=== PATIENT | female | born 1965 | race African-American/Black ===

== ENCOUNTER 2016-08-18 10:23 | Day surgery (SDC) | payer OTHER ==
[2016-08-17 12:32] VITALS: BMI 34.9
[~2016-08-18 10:23] MED LIST: BACITRACIN 50,000 UNITS VIAL NR ONE
[2016-08-18] MEDS ORDERED: LIDOCAINE HCL 2% (20ML MULTI-DOSE VIAL) NR ONE (12:45)
[2016-08-18] MEDS ORDERED: KETOROLAC TROMETHAMINE 30 MG/1 ML VIAL ONE (12:55)
[2016-08-18] MEDS ORDERED: DEXAMETHASONE SOD PHOSPHATE 4 MG/1 ML VIAL ONE (12:55)
[2016-08-18] MEDS ORDERED: PROPOFOL 20 ML ONE (12:57)
[2016-08-18] MEDS ORDERED: MIDAZOLAM HCL 2 MG/2 ML SINGLE DOSE VIAL ONE ×3 (12:57→13:38)
[2016-08-18] MEDS ORDERED: ceFAZolin SODIUM 1 GM VIAL IVPB ONE (13:00)
[2016-08-18] MEDS ORDERED: LIDOCAINE HCL 1%, 10 MG/ML (20ML VIAL) IJ ONE (13:04)
[2016-08-18] MEDS ORDERED: LIDOCAINE HCL 2% (50ML VIAL) INF ONE (13:15)
[2016-08-18] MEDS ORDERED: BUPIVACAINE HCL/PF 0.5% (5MG/ML) 10 ML VIAL IJ ONE (13:36)
[2016-08-18] MEDS ORDERED: oxyCODONE HCL 5 MG TABLET PO PRN (13:53)
[2016-08-18] MEDS ORDERED: PROMETHAZINE HCL 25 MG/1 ML VIAL IVPUSH PRN (13:53)
[2016-08-18] MEDS ORDERED: ONDANSETRON 4 MG/2 ML VIAL IVPUSH PRN (13:53)
--- NOTE | 2016-08-18 14:05 | OP ---
Operative Note - Note: Operative Date: 08/18/16 Pre-Operative Diagnosis: R foot DM foot ulcer Operation: R foot debridement and lavage Post-Operative Diagnosis: Same as Pre-op Surgeon: Jonathan Patel Anesthesia: Local, MAC Estimated Blood Loss (mls): 5 Instrument used (Debridements only): #15 blade scalpel Operative Report Dictated: Yes
[2016-08-18 14:28] VITALS: TEMP 98.2
[2016-08-18 17:34] VITALS: BP 119/54; PULSE 76
--- NOTE | 2016-08-22 05:59 | OP ---
DATE OF OPERATION: 08/18/2016 PREOPERATIVE DIAGNOSIS: Right posterior heel diabetic foot ulcer. POSTOPERATIVE DIAGNOSIS: Right posterior heel diabetic foot ulcer. PROCEDURE: Right foot debridement of ulcer and lavage. SURGEON: Jonathan Patel DPM WATCHMAKER APPRENTICE: , PGY3 resident. HEMOSTASIS: None. ANESTHESIA: Local with IV sedation. ESTIMATED BLOOD LOSS: Minimal. PATHOLOGY: None. DESCRIPTION OF PROCEDURE: The patient was brought to the operating room and placed on the operating table in the prone position. I elected to not use hemostasis during the course of the procedure. Following the induction of IV sedation, local anesthesia was achieved utilizing 15 mL of 2% lidocaine plain. Right foot was then scrubbed, prepped, and draped in the usual aseptic fashion. I directed my attention to the right posterior heel where a diabetic foot ulcer overlying the Achilles tendon was visualized and appreciated from prior surgical wound dehiscence. The procedure began by performing a sharp excisional debridement of the ulcer to the level of subcutaneous tissue utilizing sterile 15 blade and sterile scissors. There was underlying granular tissue noted with good, healthy bleeding. Of note, there was a small portion of the Achilles tendon exposed at the medial aspect of the Achilles. This tendon appeared healthy and void of infection or disease. I elected to leave the Achilles tendon intact. Once debridement was performed, the surgical site was copiously irrigated with sterile saline mixed with bacitracin. The surgical site a covered with Adaptic, and a sterile compressive dressing was applied to the right foot consisting of sterile gauze, Truong Kerlix, and an Jed wrap. Of note, I obtained an appropriate soft tissue culture post debridement. The patient tolerated the procedure and anesthesia well without complications. She was transferred from the operating room to the recovery unit with vital signs stable and neuro vasculature intact to the right foot. GLORIA BERGERON/[id number]
== END 2016-08-18 17:20 | disposition home or self-care (01) ==
LOC: JASU-SURG 10:23
PROVIDERS: ATTEND Student in an Organized Health Care Education/Training Program
PROC: 0JBQ0ZZ Excision of Right Foot Subcutaneous Tissue and Fascia, Open Approach (ICD-10-PCS; principal; 2016-08-18 12:00)
DX: E11.621 Type 2 diabetes mellitus with foot ulcer (principal); L97.419 Non-pressure chronic ulcer of right heel and midfoot with unspecified severity
CPT/HCPCS: 87070; 87186; 87205; 94760

== ENCOUNTER 2019-05-21 15:59 | Emergency (ER) | payer BC, OTHER ==
[2019-05-21 16:09] VITALS: BP 148/74; PULSE 90; TEMP 98.2; BMI 34.2
--- NOTE | 2019-05-21 16:36 | PDOC ---
History of Present Illness - General Chief Complaint: Respiratory Stated Complaint: COLD SYMPTOMS Time Seen by Provider: 05/21/19 16:19 - History of Present Illness Initial Comments: 05/21/19 16:28 CHIEF COMPLAINT: cough HISTORY OF PRESENT ILLNESS: 54-year-old female with history of hypertension and insulin-dependent diabetes presents to [facility] with cough x 4 days. Patient reports fever yesterday that broke after taking Tylenol. Patient reports sore throat early on in course of illness but now is mostly suffering from severe spasmatic cough. No recent travel or sick contacts. PAST MEDICAL HISTORY: HTN, IDDM FAMILY HISTORY: Denies SOCIAL HISTORY: Denies tobacco, alcohol, illicit drug use. SURGICAL HISTORY: Denies ALLERGIES: No known drug allergies REVIEW OF SYSTEMS General/Constitutional: Denies fever or chills. Denies weakness, weight change. HEENT: Denies change in vision. Denies ear pain or discharge. Denies sore throat. Cardiovascular: Denies chest pain or shortness of breath. Respiratory: Cough x 4 days with associated chest discomfort. Denies hemoptysis. Gastrointestinal: Denies nausea, vomiting, diarrhea or constipation. Denies rectal bleeding. Genitourinary: Denies dysuria, frequency, or change in urination. Musculoskeletal: Denies joint or muscle swelling or pain. Denies neck or back pain. Skin and breasts: Denies rash or easy bruising. Neurologic: Denies headache, vertigo, loss of consciousness, or loss of sensation. Psychiatric: Denies depression or anxiety. PHYSICAL EXAM General Appearance: Well-appearing, appropriately dressed. No apparent distress. HEENT: EOMI, PERRLA, normal ENT inspection, normal voice, TMs normal, pharynx normal. No conjunctival pallor. No photophobia, scleral icterus. Neck: Supple. Trachea midline. No tenderness, rigidity, carotid bruit, stridor , lymphadenopathy, or thyromegaly. Respiratory/Chest: Persistent dry cough with bronchospasm. No shortness of breath, chest tenderness, respiratory distress, accessory muscle use. No crackles, rales, rhonchi, stridor, wheezing, dullness Cardiovascular: RRR. S1, S2. No JVD, murmur, bradycardia, tachycardia. Vascular Pulses: Dorsalis-Pedis (R): 2+, Dorsalis-Pedis (L): 2+ Gastrointestinal/Abdominal: Normal bowel sounds. Abdomen soft, non-distended. No tenderness or rebound tenderness. No organomegaly, pulsatile mass, guarding , hernia, hepatomegaly, splenomegaly. Lymphatic: No adenopathy, tenderness. Musculoskeletal/Extremities: Normal inspection. FROM of all extremities, normal capillary refill. Pelvis Stable. No CVA tenderness. No tenderness to extremities, pedal edema, swelling, erythema or deformity. Integumentary: Appropriate color, dry, warm. No cyanosis, erythema, jaundice or rash Neurologic: patient relations specialist II-XII intact. Fully oriented, alert. Appropriate mood/affect. Motor strength 5/5. No appreciable EOM palsy, facial droop or sensory deficit. Past History - Past Medical History Allergies/Adverse Reactions: Allergies Allergy/AdvReac Type Severity Reaction Status Date / Time No Known Drug Allergies Allergy Verified 05/21/19 16:09 Home Medications: Ambulatory Orders Oxycodone HCl/Acetaminophen [Percocet 5-325 mg Tablet] 1 tab PO Q4H PRN Metoprolol Succinate [Toprol Xl -] 100 mg PO DAILY 05/04/16 Dulaglutide [Trulicity] 1.5 mg SQ WEEKLY 08/17/16 metFORMIN HCL [Metformin HCl] 500 mg PO DAILY 08/17/16 Meloxicam [Mobic (Nf) -] 15 mg PO DAILY #30 tablet 09/15/16 Mupirocin Ointment [Bactroban 2% Ointment -] 1 applic TP BID #30 gm 10/06/16 Collagenase Clostridium Hist. [Santyl] 90 gm TP DAILY #90 oint...g. 12/08/16 Azithromycin [Zithromax 250mg Tablets -] 250 mg PO DAILY #4 tab 05/21/19 Benzonatate [Tessalon Pearls -] 100 mg PO TID #21 capsule 05/21/19 Cefpodoxime Proxetil [Vantin -] 200 mg PO Q12H #14 tablet 05/21/19 predniSONE [Deltasone -] 20 mg PO DAILY #5 tablet 05/21/19 Anemia: No Asthma: Yes (SUMMER FLAREUPS DUE TO HIGH HUMIDITY) Cancer: Yes (REMISSION FOR OVARIAN AND BREAST CANCER) Cardiac Disorders: No CVA: No COPD: No CHF: No Dementia: No Diabetes: Yes (IDDM) GI Disorders: No Disorders: No HTN: Yes Hypercholesterolemia: No Liver Disease: No Seizures: No Thyroid Disease: No - Surgical History Abdominal Surgery: Yes Appendectomy: No Cardiac Surgery: No Cholecystectomy: No Lung Surgery: No Neurologic Surgery: No Orthopedic Surgery: Yes (L KNEE ARTHROSCOPY) - Psycho Social/Smoking Cessation Hx Smoking Status: No Smoking History: Never smoked Have you smoked in the past 12 months: No Number of Cigarettes Smoked Daily: 0 Hx Alcohol Use: Yes (occasionally) Drug/Substance Use Hx: No Substance Use Type: None Hx Substance Use Treatment: No *Physical Exam - Vital Signs Last Vital Signs Temp Pulse Resp BP Pulse Ox 98.2 F 90 18 148/74 97 05/21/19 16:06 05/21/19 16:06 05/21/19 16:06 05/21/19 16:06 05/21/19 16:06 Medical Decision Making - Medical Decision Making 05/21/19 17:23 54-year-old female with history of hypertension and insulin-dependent diabetes presents to fast track with cough x 4 days. -CXR -duoneb CXR suspicious for b/l LL pneumonia. -azithromyin 500 mg given in ED Will rx remainder of Zpack, cefpoxidime. Tessalon perles and prednisone given for symptomatic relief. Advised patient to take medication as prescribed and follow up with PCP within the next week. Advised patient of signs and symptoms for return to ED. Patient verbalized understanding and agrees to plan. Discharge - Discharge Information Problems reviewed: Yes Clinical Impression/Diagnosis: Pneumonia Qualifiers: Pneumonia type: due to unspecified organism Laterality: bilateral Lung location : lower lobe of lung Qualified Code(s): J18.9 - Pneumonia, unspecified organism Condition: Stable Disposition: HOME - Admission No - Additional Discharge Information Prescriptions: Azithromycin [Zithromax 250mg Tablets -] 250 mg PO DAILY #4 tab Benzonatate [Tessalon Pearls -] 100 mg PO TID #21 capsule Cefpodoxime Proxetil [Vantin -] 200 mg PO Q12H #14 tablet predniSONE [Deltasone -] 20 mg PO DAILY #5 tablet - Follow up/Referral - Patient Discharge Instructions Patient Printed Discharge Instructions: DI for Pneumonia -- Adult Additional Instructions: Please take medication as prescribed. Follow with your primary care doctor within the next week for continued monitoring and evaluation of your symptoms. If you develop worsening cough, persistent fever, or any new or worsening symptoms, please return to the ER. - Post Discharge Activity Work/Back to School Note: Back to Work
[2019-05-21] MEDS ORDERED: ALBUTEROL SO4 2.5/IPRATROPIUM 0.5 INH SOL 3 ML VIAL.NEB. NEB ONE ×2 (16:39→16:43)
[2019-05-21] MEDS ORDERED: AZITHROMYCIN 250 MG TABLET PO ONE (16:52)
[2019-05-21] MEDS ORDERED: predniSONE 20 MG TABLET (UD) PO ONE (16:52)
[2019-05-21] MEDS ORDERED: AZITHROMYCIN 500 MG TABLET ONE (16:55)
[2019-05-21] MEDS ORDERED: predniSONE 20 MG TABLET (UD) ONE (16:55)
== END 2019-05-21 17:55 | disposition home or self-care (01) ==
LOC: JERFT 15:59
PROC: 3E0F7GC Introduction of Other Therapeutic Substance into Respiratory Tract, Via Natural or Artificial Opening (ICD-10-PCS; principal; 2019-05-21)
DX: J18.9 Pneumonia, unspecified organism (principal); I10 Essential (primary) hypertension; E11.9 Type 2 diabetes mellitus without complications; Z79.4 Long term (current) use of insulin; Z87.09 Personal history of other diseases of the respiratory system
CPT/HCPCS: 71046-TC-FY; 87804; 99281-25

== ENCOUNTER 2019-05-31 15:33 | Emergency (ER) | payer BC ==
[2019-05-31 16:22] VITALS: BMI 33.2
--- NOTE | 2019-05-31 16:22 | PDOC ---
Rapid Medical Evaluation Time Seen by Provider: 05/31/19 16:19 Medical Evaluation: Allergies Allergy/AdvReac Type Severity Reaction Status Date / Time No Known Drug Allergies Allergy Verified 05/31/19 16:14 05/31/19 16:19 I have performed a brief in-person evaluation of this patient. The patient presents with a chief complaint of: H/o asthma, w? cough and ? sob. Sxs feels like her asthma. Rescue inhaler not helping. Ran out of the albuterol for her machine. No wheezing. Dx w/ PNA last month per pt. No tob use Pertinent physical exam findings:Stable and in NAD, coughing at triage, lungs clear I have ordered the following:nothing The patient will proceed to the ED for further evaluation. Discharge Disposition - Diagnosis Cough - Referrals - Patient Instructions - Post Discharge Activity
[2019-05-31] MEDS ORDERED: ACETAMINOPHEN 500 MG TABLET (FP) PO ONE (16:57)
[2019-05-31] MEDS ORDERED: ALBUTEROL SO4 0.083% IH SOL 2.5 MG/3 ML VIAL.NEB. NEB ONE ×2 (16:57→17:01)
[2019-05-31] MEDS ORDERED: ACETAMINOPHEN 325 MG TABLET (FP) ONE (17:01)
--- NOTE | 2019-05-31 17:02 | PDOC ---
History of Present Illness - General Chief Complaint: Shortness of Breath Stated Complaint: PNEUMONIA Time Seen by Provider: 05/31/19 16:19 History Source: Patient Exam Limitations: No Limitations - History of Present Illness Initial Comments: 05/31/19 16:59 54y F with PMH of DM, Asthma, HTN presenting to ED for cough, sob and back pain. Pt states she was recently diagnosed with PNA 10d ago and given antibiotics to take; course finished last week. Pt states that she saw her PMD and is currently taking amoxicillin. She endorses a dry, constant cough, chills , sob. Denies chest pain, fever, headache, sore throat, congestion, runny nose, rash, urinary symptoms, abdominal pain, n/v/d. SOB is constant, not worsened with exertion or at rest. She does not have an inhaler PMD: [place] PMH: see hpi Meds: see med rec Allergies: nkda Past History - Past Medical History Allergies/Adverse Reactions: Allergies Allergy/AdvReac Type Severity Reaction Status Date / Time No Known Drug Allergies Allergy Verified 05/31/19 16:14 Home Medications: Ambulatory Orders Oxycodone HCl/Acetaminophen [Percocet 5-325 mg Tablet] 1 tab PO Q4H PRN Metoprolol Succinate [Toprol Xl -] 100 mg PO DAILY 05/04/16 Dulaglutide [Trulicity] 1.5 mg SQ WEEKLY 08/17/16 metFORMIN HCL [Metformin HCl] 500 mg PO DAILY 08/17/16 Meloxicam [Mobic (Nf) -] 15 mg PO DAILY #30 tablet 09/15/16 Mupirocin Ointment [Bactroban 2% Ointment -] 1 applic TP BID #30 gm 10/06/16 Collagenase Clostridium Hist. [Santyl] 90 gm TP DAILY #90 oint...g. 12/08/16 Azithromycin [Zithromax 250mg Tablets -] 250 mg PO DAILY #4 tab 05/21/19 Benzonatate [Tessalon Pearls -] 100 mg PO TID #21 capsule 05/21/19 Cefpodoxime Proxetil [Vantin -] 200 mg PO Q12H #14 tablet 05/21/19 predniSONE [Deltasone -] 20 mg PO DAILY #5 tablet 05/21/19 Albuterol Sulfate Inhaler - [Ventolin HFA Inhaler -] 1 - 2 inh PO QID #1 inhaler 05/31/19 Benzonatate [Tessalon Pearls -] 200 mg PO TID PRN #30 capsule 05/31/19 Codeine Phosphate/Guaifenesin [Guaifen-Codeine 100-10 mg/5 ml] 5 ml PO HS PRN # 100 ml MDD 5mL 05/31/19 Prednisone 40 mg PO DAILY 5 Days #20 tablet 05/31/19 Anemia: No Asthma: Yes (SUMMER FLAREUPS DUE TO HIGH HUMIDITY) Cancer: Yes (REMISSION FOR OVARIAN AND BREAST CANCER) Cardiac Disorders: No CVA: No COPD: No CHF: No Dementia: No Diabetes: Yes (IDDM) GI Disorders: No Disorders: No HTN: Yes Hypercholesterolemia: No Liver Disease: No Seizures: No Thyroid Disease: No - Surgical History Abdominal Surgery: Yes Appendectomy: No Cardiac Surgery: No Cholecystectomy: No Lung Surgery: No Neurologic Surgery: No Orthopedic Surgery: Yes (L KNEE ARTHROSCOPY) - Immunization History Immunization Up to Date: Yes - Psycho Social/Smoking Cessation Hx Smoking Status: No Smoking History: Never smoked Have you smoked in the past 12 months: No Number of Cigarettes Smoked Daily: 0 Hx Alcohol Use: No Drug/Substance Use Hx: No Substance Use Type: None Hx Substance Use Treatment: No Review of Systems - Review of Systems Constitutional: Yes: Chills. No: Fever HEENTM: No: Symptoms Reported Respiratory: Yes: Cough, Shortness of Breath. No: Wheezing Cardiac (ROS): No: Chest Pain, Lightheadedness, Palpitations ABD/GI: No: Symptoms Reported : No: Symptoms Reported Musculoskeletal: No: Symptoms Reported Integumentary: No: Symptoms Reported Neurological: No: Symptoms reported *Physical Exam - Vital Signs Last Vital Signs Temp Pulse Resp BP Pulse Ox 97.5 F L 92 H 18 132/81 99 05/31/19 16:15 05/31/19 16:15 05/31/19 16:15 05/31/19 16:15 05/31/19 16:15 - Physical Exam General Appearance: Yes: Appropriately Dressed, Obese. No: Apparent Distress HEENT: positive: EOMI, ARVIND, Normal ENT Inspection Neck: positive: Trachea midline, Supple Respiratory/Chest: positive: Lungs Clear, Normal Breath Sounds. negative: Chest Tender, Respiratory Distress, Accessory Muscle Use, Crackles, Rales, Rhonchi, Stridor, Wheezing Cardiovascular: positive: Regular Rhythm, Regular Rate, S1, S2. negative: Edema , JVD, Murmur Gastrointestinal/Abdominal: positive: Normal Bowel Sounds, Soft. negative: Tender Extremity: positive: Normal Capillary Refill Integumentary: positive: Normal Color, Dry, Warm Neurologic: positive: crown wheel assembler II-XII NML intact, Fully Oriented, Alert, Normal Mood/ Affect, Normal Response, Motor Strength 09/25 ED Treatment Course - LABORATORY CBC & Chemistry Diagram: 05/31/19 17:16 05/31/19 17:16 - RADIOLOGY Radiology Studies Ordered: Category Date Time Status CHEST PA & LAT [RAD] Stat Radiology 05/31/19 16:57 Ordered Medical Decision Making - Medical Decision Making 05/31/19 17:50 54y F presenting to ED with cough, sob, back pain vitals wnl not wheezing, appears comfortable, no tachypnea. ddx includes but not limited to uri, asthma exacerbation, pna, ptx, gerd, post nasal drip will obtain basic labs, trop, ekg, cxr -albuterol, tylenol will reassess 05/31/19 19:03 pt has some resolution of symptoms. labs wnl ekg: nsr at 73bpm, normal axis. no prerna or depressions. normal intervals. cxr: no infiltrates or consolidations. safe for dc home. will dc with guaiafenisen, tessalon perle, albuterol and 5d of predisone. Discharge - Discharge Information Problems reviewed: Yes Clinical Impression/Diagnosis: Cough Condition: Improved Disposition: HOME - Admission No - Additional Discharge Information Prescriptions: Albuterol Sulfate Inhaler - [Ventolin HFA Inhaler -] 1 - 2 inh PO QID #1 inhaler Benzonatate [Tessalon Pearls -] 200 mg PO TID PRN #30 capsule PRN Reason: Cough Codeine Phosphate/Guaifenesin [Guaifen-Codeine 100-10 mg/5 ml] 5 ml PO HS PRN # 100 ml MDD 5mL PRN Reason: Cough Prednisone 40 mg PO DAILY 5 Days #20 tablet - Follow up/Referral Referrals: Alonso Morris MD, MD [Primary Care Provider] - - Patient Discharge Instructions Patient Printed Discharge Instructions: DI for Asthma -- Adult, DI for Cough - - Adult Additional Instructions: You were seen in the emergency room today for cough. The blood work and Xray is normal. You do not have pneumonia. A few prescriptions were sent to your pharmacy, take as directed. The cough medicine will make you drowsy, take at bedtime and do not drive when taking it. Please come back to the emergency room for worsening cough, fever, difficulty breathing, chest pain or if any new or concerning symptom develops. Thank you - Post Discharge Activity
[2019-05-31 17:47] LABS: BASO % 0.6 % (0-2.0); EOS % 1.2 % (0-4.5); HEMATOCRIT 38.1 % (32.4-45.2); HEMOGLOBIN 12.7 GM/dL (10.7-15.3); LYMPH % 32.1 % (8-40); MCH 32.9 pg (25.7-33.7); MCHC 33.2 g/dl (32.0-36.0); MEAN PLT VOLUME 9.5 fl (7.5-11.1); MONO % 6.9 % (3.8-10.2); NEUT % 59.2 % (42.8-82.8); PLATELET COUNT 220 K/MM3 (134-434); RBC 3.85 M/mm3 (3.60-5.2); RDW 12.9 % (11.6-15.6); WHITE BLOOD COUNT 6.7 K/mm3 (4.0-10.0)
[2019-05-31 18:22] LABS: ALBUMIN 3.7 g/dl (3.4-5.0); ALK PHOS 71 U/L (45-117); ANION GAP 5 MMOL/L (8-16); BILIRUBIN,TOTAL 0.4 mg/dL (0.2-1); BLOOD UREA NITROGEN 14.9 mg/dL (7-18); CALCIUM 8.9 mg/dL (8.5-10.1); CHLORIDE 108 mmol/L (98-107); CO2 27 mmol/L (21-32); CREATININE 0.7 mg/dL (0.55-1.3); GLUCOSE,RANDOM 85 mg/dL (74-106); POTASSIUM 3.9 mmol/L (3.5-5.1); SGOT/AST 14 U/L (15-37); SGPT/ALT 20 U/L (13-61); SODIUM 140 mmol/L (136-145); TOT PROT 6.8 g/dl (6.4-8.2)
--- NOTE | 2019-05-31 18:25 | PDOC ---
Attending Attestation - Resident Resident Name: Vashti Sorensen - ED Attending Attestation I have performed the following: I have examined & evaluated the patient, The case was reviewed & discussed with the resident, I agree w/resident's findings & plan, Exceptions are as noted - HPI HPI: 05/31/19 18:22 Ms. Pablo is a 54 yo F h/o DM, Asthma, HTN presenting to ED for cough, sob and back pain. Pt was dx with pneumonia 10 days ago, Started on Azithromycin which she completed Pt then saw her PMD who started Amoxicillin (which she is currently taking) Pt reports cough which is constant, dry, no sputum Pt has had shortness of breath No chest pain at all No fever, headache, sore throat, congestion, runny nose, rash, urinary symptoms , abdominal pain, n/v/d. She has not used an inhaler PMD: [place] PMH: see hpi Meds: see med rec Allergies: nkda - Physicial Exam PE: 05/31/19 18:24 GENERAL: The patient is in no acute distress. ENT: Ears normal, nares patent, oropharynx clear without exudates. Moist mucous membranes. NECK: Normal range of motion, supple, LUNGS: Breath sounds equal, clear to auscultation bilaterally. Expiratory wheezing HEART:Regular rate and rhythm, normal S1 and S2 without murmur, rub or gallop. ABDOMEN: Soft, nontender, normoactive bowel sounds. EXTREMITIES: Normal range of motion, no edema. NEUROLOGICAL: Cranial nerves II through XII grossly intact. Normal speech. No focal neurological deficits. SKIN: Warm, Dry, normal turgor, no rashes or lesions noted. - Medical Decision Making 05/31/19 18:24 Laboratory Tests 05/31/19 05/31/19 17:16 17:16 WBC 6.7 Hgb 12.7 Hct 38.1 Plt Count 220 BUN 14.9 Creatinine 0.7 Troponin I < 0.02 Chest x-ray: No infiltrate seen Patient shortness of breath and wheezing likely related to reactive airway disease We will start Solu-Medrol We will asked patient to initiate albuterol Patient has follow-up with her primary care physician on Wednesday Clinical impression: URI, initial presentation Reactive airway disease, initial presentation
[2019-05-31 19:16] VITALS: BP 136/64; PULSE 72; TEMP 97.8
--- NOTE | 2019-06-01 11:51 | EKG ---
Test Reason : Blood Pressure : / mmHG Vent. Rate : 073 BPM Atrial Rate : 073 BPM P-R Int : 152 ms QRS Dur : 078 ms QT Int : 388 ms P-R-T Axes : 065 054 015 degrees QTc Int : 427 ms NORMAL SINUS RHYTHM NORMAL ECG WHEN COMPARED WITH ECG OF 31-MAY-2019 17:09, PREMATURE ATRIAL COMPLEXES ARE NO LONGER PRESENT Confirmed by ESTHER CHRISTIAN MD ([id number]) on 06/01/2019 11:51:32 AM Referred By: Confirmed By:ESTHER CHRISTIAN MD
== END 2019-05-31 19:17 | disposition home or self-care (01) ==
LOC: JER 15:33
PROC: 3E0F7GC Introduction of Other Therapeutic Substance into Respiratory Tract, Via Natural or Artificial Opening (ICD-10-PCS; principal; 2019-05-31)
DX: J06.9 Acute upper respiratory infection, unspecified (principal); J45.998 Other asthma; Z87.01 Personal history of pneumonia (recurrent); I10 Essential (primary) hypertension; E11.9 Type 2 diabetes mellitus without complications; Z79.84 Long term (current) use of oral hypoglycemic drugs; Z85.3 Personal history of malignant neoplasm of breast; Z85.43 Personal history of malignant neoplasm of ovary
CPT/HCPCS: 36415; 71046-TC-FY; 80053; 84484; 85025; 93005; 93010; 99283-25

== ENCOUNTER 2022-06-22 04:02 | Day surgery (SDC) | payer BC ==
[2022-06-18 11:56] VITALS: BMI 35.2
[2022-06-22] MEDS ORDERED: BUPIVACAINE HCL/PF 0.5% (5MG/ML) 10 ML VIAL ONE (07:35)
[2022-06-22] MEDS ORDERED: LIDOCAINE HCL 1%, 10 MG/ML (20ML VIAL) ONE (07:36)
[2022-06-22] MEDS ORDERED: MIDAZOLAM HCL 2 MG/2 ML SINGLE DOSE VIAL ONE ×2 (08:31→09:21)
[2022-06-22] MEDS ORDERED: ePHEDrine SULFATE 50 MG/1 ML AMPULE ONE (08:31)
[2022-06-22] MEDS ORDERED: ceFAZolin 2 GRAM PREMIX BAG IVPB ONE (09:20)
[2022-06-22] MEDS ORDERED: PROPOFOL 20 ML ONE (09:23)
[2022-06-22] MEDS ORDERED: LIDOCAINE HCL 1%, 10 MG/ML (20ML VIAL) INF ONE ×2 (09:26)
[2022-06-22] MEDS ORDERED: BUPIVACAINE HCL/PF 0.5% (5MG/ML) 10 ML VIAL IJ ONE ×2 (09:26)
[2022-06-22] MEDS ORDERED: LACTATED RINGERS SOLUTION 1,000 ML IV SCH (10:30)
[2022-06-22 10:47] VITALS: RESP 18
[2022-06-22] MEDS ORDERED: ONDANSETRON *ODT* 4 MG TABLET SL ONE (11:40)
[2022-06-22] MEDS ORDERED: ONDANSETRON 4 MG/2 ML VIAL IVPUSH PRN (11:40)
[2022-06-22] MEDS ORDERED: ONDANSETRON *ODT* 4 MG TABLET ONE (11:41)
[2022-06-22 12:45] VITALS: BP 124/76; PULSE 68; TEMP 97.7
== END 2022-06-22 12:15 | disposition home or self-care (01) ==
LOC: JASU-SURG 04:02
PROVIDERS: ATTEND Orthopaedic Surgery
PROC: 01N50ZZ Release Median Nerve, Open Approach (ICD-10-PCS; principal; 2022-06-22 08:00)
DX: G56.02 Carpal tunnel syndrome, left upper limb (principal)
CPT/HCPCS: 82962; 88304-TC; 94760; Q0162

== ENCOUNTER 2024-04-09 08:48 | Observation (INO) | payer BC ==
[2024-04-09 09:02] VITALS: RESP 18
[2024-04-09] MEDS ORDERED: FAMOTIDINE 20 MG/50 ML IVPB 20 MG/50 ML MG IVPB ONE (09:47)
[2024-04-09] MEDS ORDERED: ACETAMINOPHEN INJECTION 100 ML ONE (09:47)
[2024-04-09] MEDS ORDERED: MAG HYDROX/AL HYDROX/SIMETH 30 ML UNIT-DOSE CUP ONE ×2 (09:47→10:17)
[2024-04-09] MEDS ORDERED: METOCLOPRAMIDE HCL INJECTION 10 MG/2 ML VIAL ONE (09:47)
[2024-04-09] MEDS: MAG HYDROX/AL HYDROX/SIMETH 30 ML UNIT-DOSE CUP PO ONE (10:00)
[2024-04-09] MEDS: METOCLOPRAMIDE HCL INJECTION 10 MG/2 ML VIAL IVPUSH ONE (10:00)
[2024-04-09] MEDS: SODIUM CHLORIDE 1,000 ML IV STA (10:00)
[2024-04-09] MEDS: FAMOTIDINE 20 MG/50 ML IVPB 20 MG/50 ML MG IVPB ONE (10:00)
[2024-04-09] MEDS: ACETAMINOPHEN 1000 MG/100 ML BAG IVPB ONE (10:00)
[2024-04-09 10:31] LABS: BASO % 0.2 % (0-2.0); EOS % 0.6 % (0-4.5); HEMATOCRIT 40.4 % (32.4-45.2); HEMOGLOBIN 13.9 GM/dL (10.7-15.3); LYMPH % 28.3 % (8-40); MCH 33.4 pg (25.7-33.7); MCHC 34.3 g/dl (32.0-36.0); MEAN CELL VOLUME 97.4 fl (80-96); NEUT % 63.9 % (42.8-82.8); PLATELET COUNT 230 10^3/uL (134-434); RBC 4.15 M/mm3 (3.60-5.2); RDW 13.4 % (11.6-15.6); WHITE BLOOD COUNT 3.9 K/mm3 (4.0-10.0)
[2024-04-09] MEDS: ONDANSETRON 4 MG/2 ML VIAL IVPB ONE (10:36)
[2024-04-09 11:02] LABS: POTASSIUM 4.8 mmol/L (3.5-5.1)
[2024-04-09 11:05] LABS: ALBUMIN 3.7 g/dl (3.4-5.0); BLOOD UREA NITROGEN 13.3 mg/dL (7-18)
[2024-04-09 11:08] LABS: CREATININE 0.6 mg/dL (0.55-1.3)
[2024-04-09 11:09] LABS: BILIRUBIN,TOTAL 1.1 mg/dL (0.2-1); TOT PROT 6.7 g/dl (6.4-8.2)
[2024-04-09] MEDS ORDERED: MECLIZINE HCL 25 MG TABLET (FP) ONE (11:25)
[2024-04-09] MEDS: MECLIZINE HCL 25 MG TABLET (FP) PO ONE ×2 (11:29→17:02)
[2024-04-09] MEDS ORDERED: ACETAMINOPHEN 325 MG TABLET (FP) PO PRN (15:43)
[2024-04-09] MEDS: ONDANSETRON *ODT* 4 MG TABLET SL PRN (17:13)
[2024-04-09 18:01] VITALS: BMI 35.3
[2024-04-09] MEDS: HEPARIN NA (PORCINE) 5,000 UNITS/ML 1ML VIAL SQ SCH (21:21)
[2024-04-10 08:59] LABS: HEMATOCRIT 39.6 % (32.4-45.2); HEMOGLOBIN 13.6 GM/dL (10.7-15.3); MCH 33.4 pg (25.7-33.7); MCHC 34.3 g/dl (32.0-36.0); MEAN CELL VOLUME 97.3 fl (80-96); PLATELET COUNT 201 10^3/uL (134-434); RBC 4.07 M/mm3 (3.60-5.2); RDW 13.1 % (11.6-15.6); WHITE BLOOD COUNT 4.3 K/mm3 (4.0-10.0)
[2024-04-10 09:22] LABS: POTASSIUM 3.9 mmol/L (3.5-5.1)
[2024-04-10 09:25] LABS: ALBUMIN 3.5 g/dl (3.4-5.0); BLOOD UREA NITROGEN 12.8 mg/dL (7-18); CALCIUM 8.7 mg/dL (8.5-10.1)
[2024-04-10 09:28] LABS: CREATININE 0.7 mg/dL (0.55-1.3)
[2024-04-10 09:30] LABS: BILIRUBIN,TOTAL 0.9 mg/dL (0.2-1); TOT PROT 6.2 g/dl (6.4-8.2)
[2024-04-10] MEDS: MECLIZINE HCL 25 MG TABLET (FP) PO PRN (09:38)
[2024-04-11 09:02] VITALS: BP 105/84; PULSE 66
[2024-04-11 14:04] VITALS: TEMP 98
== END 2024-04-11 14:07 | disposition home or self-care (01) ==
LOC: JER 08:48 → JERBED 15:09 → J7W 16:28
PROVIDERS: ADMIT Family Medicine; ATTEND Family Medicine
PROC: 3E023GC Introduction of Other Therapeutic Substance into Muscle, Percutaneous Approach (ICD-10-PCS; principal; 2024-04-09)
PROC: 3E0337Z Introduction of Electrolytic and Water Balance Substance into Peripheral Vein, Percutaneous Approach (ICD-10-PCS; 2024-04-09)
DX: K30 Functional dyspepsia (principal); E11.9 Type 2 diabetes mellitus without complications; J45.909 Unspecified asthma, uncomplicated; I10 Essential (primary) hypertension; R42 Dizziness and giddiness
CPT/HCPCS: 36415; 70496-TC; 70498-TC; 71046-TC-FY; 80053; 82962; 83690; 83735; 84484; 85025; 85027; 93005; 93010; 97116-GP; 97162-GP; 99285-25; G0378; J0131; J1644; Q0162; Q9967